=== PATIENT | female | born 1955 | race Caucasian/White ===

== ENCOUNTER 2018-06-12 10:24 | Emergency (ER) | payer BC ==
[2018-06-12 10:30] VITALS: RESP 18
--- NOTE | 2018-06-12 11:09 | ED ---
General Adult HPI - General Chief complaint: Extremity Injury, Lower Stated complaint: Knee injury/pain Time Seen by Provider: 06/12/18 10:58 Source: patient, RN notes reviewed Mode of arrival: wheelchair Limitations: physical limitation - History of Present Illness Initial comments: Patient 63-year-old female presented to the emergency room today with a chief complaint of an injury to the right knee that occurred yesterday. Patient does admit that she was trying to step over her dog and fell down onto the anterior aspect of the right knee. There is no head injury or loss conscious. She states it happened about 9 PM last night. States she did ice it before going to bed. Woke up this morning increased swelling. States she is able to bear weight but with ambulation does have increased pain. Patient denies any other complaints. Patient denies any recent fever, chills, shortness of breath, chest pain, back pain, abdominal pain, headaches or visual changes, or any other complaints. - Related Data Home Medications Medication Instructions Recorded Confirmed Folic Acid 1 mg PO DAILY 03/07/16 06/12/18 Methotrexate Sodium [Methotrexate] 7.5 mg PO Q7D 03/07/16 06/12/18 Milk Thistle With Vit E 2 tab PO DAILY 03/07/16 06/12/18 Multivit-Min/FA/Lycopen/Lutein 1 each PO DAILY 03/07/16 06/12/18 [Centrum Silver Tablet] cycloSPORINE [Restasis] 1 drop BOTH EYES BID 03/07/16 06/12/18 sulfaSALAzine [Azulfidine] 1,000 mg PO BID 03/07/16 06/12/18 Hydroxychloroquine Sulfate 400 mg PO DAILY 06/12/18 06/12/18 [Plaquenil] Previous Rx's Medication Instructions Recorded Ibuprofen [Motrin] 600 mg PO Q6HR PRN #40 day 06/12/18 Allergies Allergy/AdvReac Type Severity Reaction Status Date / Time No Known Allergies Allergy Verified 06/12/18 10:30 Review of Systems ROS Statement: Those systems with pertinent positive or pertinent negative responses have been documented in the HPI. ROS Other: All systems not noted in ROS Statement are negative. Past Medical History Past Medical History: GERD/Reflux, Osteoarthritis (OA), Rheumatoid Arthritis (RA ) Additional Past Medical History / Comment(s): [employer]. History of Any Multi-Drug Resistant Organisms: None Reported Additional Past Surgical History / Comment(s): HARITHA CATARACTS, COLONOSCOPY, total right hip anterior 03/14/16. Past Anesthesia/Blood Transfusion Reactions: No Reported Reaction Past Psychological History: No Psychological Hx Reported Smoking Status: Former smoker Past Alcohol Use History: None Reported Past Drug Use History: None Reported - Past Family History Mother Family Medical History: No Reported History General Exam - General Exam Comments Initial Comments: General: The patient is awake and alert, in no distress, and does not appear acutely ill. Neck: The neck is supple, there is no tenderness or JVD. Musculoskeletal: Patient has swelling of the right knee. Locally tender over the medial anterior tibia. Patient shows limited range of motion with flexion able to fully extend. Sensations intact. Pupils equal. Neurological: A&O x 3. CN II-XII intact, There are no obvious motor or sensory deficits. Coordination appears grossly intact. Speech is normal. Skin: Skin is warm and dry and no rashes or lesions are noted. Psychiatric: Normal mood and affect. Limitations: physical limitation Course Vital Signs 06/12/18 10:28 Temperature 98.5 F Pulse Rate 87 Respiratory 18 Rate Blood Pressure 144/85 O2 Sat by Pulse 100 Oximetry Medical Decision Making - Medical Decision Making Patient's x-ray reviewed and read by radiology with no acute fracture dislocation. Patient will be placed in knee immobilizer advised follow-up with orthopedic doctor for further evaluation. Advised return if any symptoms increase worsen. Disposition Clinical Impression: Knee injuries Disposition: HOME SELF-CARE Condition: Good Instructions: Knee Pain (ED) Additional Instructions: Please follow-up with orthopedic doctor the next 2 days. Please use knee immobilizer up and moving around. Please continue to ice elevate the affected area and use ibuprofen for pain. Please return to emergency room for any other concerns. Prescriptions: Ibuprofen [Motrin] 600 mg PO Q6HR PRN #40 day PRN Reason: Pain Is patient prescribed a controlled substance at d/c from ED?: No Referrals: Agnieszka Doss DO [Primary Care Provider] - 1-2 days Julio C Wilson DO [Doctor of Osteopathic Medicine] - 1-2 days Time of Disposition: 12:11
--- NOTE | 2018-06-12 11:28 | XR ---
EXAMINATION TYPE: XR knee complete RT , 3 VIEWS DATE OF EXAM ORDERED: 06/12/2018 HISTORY: Pain. COMPARISON: None. FINDINGS: No fracture, dislocation or joint effusion is seen. There may be some mild medial joint sp erin loss. IMPRESSION: 1. NO ACUTE OSSEOUS LESION. 2. I CANNOT EXCLUDE SOME EARLY OSTEOARTHRITIC CHANGE.
[2018-06-12 12:35] VITALS: BP 137/61; PULSE 73; TEMP 98.3
== END 2018-06-12 12:35 | disposition home or self-care (01) ==
LOC: EC 10:24
DX: S89.91XA Unspecified injury of right lower leg, initial encounter (principal); M25.461 Effusion, right knee; M25.561 Pain in right knee; M06.9 Rheumatoid arthritis, unspecified; Z87.891 Personal history of nicotine dependence; Z79.899 Other long term (current) drug therapy; W18.39XA Other fall on same level, initial encounter; Y93.89 Activity, other specified
CPT/HCPCS: 73562; 99283; L1830